=== PATIENT | female | born 1975 | race Caucasian/White ===

== ENCOUNTER 2025-05-10 09:52 | Outpatient (CLI) | payer MEDICAID ==
--- NOTE | 2025-05-10 11:31 | RADIOLOGY REPORT ---
INDICATION: ACUTE ANEMIA TECHNIQUE: Multiple real-time sonographic images of the abdomen were obtained. COMPARISON: None FINDINGS: Liver is homogenous in echogenicity. The liver measures 14.8 cm. No intrahepatic biliary ductal dilatation is noted. Gallbladder is contracted and suboptimally visualized. The common duct measures 0.6 cm and is unremarkable. The right kidney measures 9.6 cm. No hydronephrosis. The left kidney measures 10.9 cm. No hydronephro sis. The spleen measures 11.9 cm, within normal limits. The echogenicity is within normal limits. The pancreas is not well visualized due to obscuration from bowel gas. The visualized portions of the IVC and aorta are grossly unremarkable. IMPRESSION: Gallbladder is contracted and suboptimally visualized. Otherwise, no acute or suspicious findings.
== END 2025-05-10 23:59 | disposition home or self-care (01) ==
LOC: US 09:52
PROVIDERS: ATTEND Family Medicine
DX: K82.0 Obstruction of gallbladder (principal); D64.9 Anemia, unspecified
CPT/HCPCS: 76700